=== PATIENT | male | born 1985 | race Caucasian/White ===

== ENCOUNTER 2022-08-19 14:47 | Outpatient (REF) | payer BC, SELFPAY ==
[2022-08-19 19:02] LABS: Alanine Aminotransferase 60 U/L (0-40); Albumin Level 4.2 g/dL (3.5-5.0); Alkaline Phosphatase 76 U/L (39-117); Aspartate Amino Transferase 40 U/L (5-37); Bilirubin Direct 0.2 mg/dL (0.0-0.5); Bilirubin Total 0.7 mg/dL (0.0-1.0); Ferritin 50 ng/mL (20-250); Total Protein 6.9 g/dL (6.5-8.0)
[2022-08-20 05:21] LABS: HBS Num1 > 1000.00 mIU/mL (0-7.99); HBc Num1 0.11 S/CO (0.00-0.79); HBsAGNum1 0.21 S/CO (0.00-0.99); Hepatitis B Core Antibody Nonreactive (Nonreactive); Hepatitis B Surface Antigen Negative (Negative); ~HepC Num1 0.12 S/CO (0.00-0.79); ~Hepatitis B Surface Antibody REACTIVE (Nonreactive); ~Hepatitis C Antibody Nonreactive (Nonreactive)
[2022-08-21 04:33] LABS: Hepatitis A Antibody IgM 0.21 Index (0-0.79); ~Hepatitis A Antibody IgM Nonreactive (Nonreactive)
== END 2022-08-19 14:48 | disposition home or self-care (01) ==
LOC: HO.MANLDS 14:47
PROVIDERS: Visit Provider Internal Medicine
DX: R74.01 Elevation of levels of liver transaminase levels (principal)
CPT/HCPCS: 36415; 80076; 82728; 86704; 86706; 86709; 86803; 87340

== ENCOUNTER 2023-05-07 10:36 | Outpatient (REF) | payer BC, SELFPAY ==
[2023-05-07 13:31] LABS: MANUAL DIFF FLAG NO
[2023-05-07 13:38] LABS: Basophils Percent Auto 0.6 % (0-2); Eosinophils Absolute Auto 0.1 X10*3/uL (0.0-0.4); Eosinophils Percent Auto 1.7 % (0-4); Hematocrit 42.3 % (42.0-52.0); Hemoglobin 14.1 g/dl (14.0-18.0); Imm Gran Abs Auto 0.02 X10*3/uL (0.00-0.03); Imm Gran Pct Auto 0.3 % (0.0-0.4); Lymphocytes Absolute Auto 1.7 X10*3/uL (1.2-4.9); Mean Corpuscular HGB Conc 33.3 g/dl (31.0-36.0); Mean Corpuscular Hemoglobin 27.4 pg (27.0-33.0); Mean Corpuscular Volume 82.3 fL (80.0-98.0); Mean Platelet Volume 8.8 fL (9.4-12.4); Monocytes Absolute Auto 0.7 X10*3/uL (0.1-1.2); Monocytes Percent Auto 10.2 % (2-11); Neutrophils Absolute Auto 4.3 x10*3/uL (2.0-8.3); Neutrophils Percent Auto 62.2 % (45-73); Platelet Count 318 X10*3/uL (160-400); Red Blood Count 5.14 X10*6/uL (4.60-5.80); Red Cell Distribution Width 12.8 % (11.0-16.0); White Blood Count 6.9 X10*3/uL (4.8-10.8)
[2023-05-07 14:04] LABS: Alanine Aminotransferase 19 U/L (0-40); Albumin Level 4.3 g/dL (3.5-5.0); Alkaline Phosphatase 85 U/L (39-117); Anion Gap 12 (12-20); Aspartate Amino Transferase 23 U/L (5-37); Bilirubin Total 0.6 mg/dL (0.0-1.0); Blood Urea Nitrogen 12 mg/dL (9-16); Carbon Dioxide 28 mmol/L (22-29); Chloride 101 mmol/L (96-108); Cholesterol 173 mg/dL (<200); Estimated Glomerular Filt Rate > 60; Glucose Random 87 mg/dL (60-115); HDL Cholesterol 61 mg/dL (>40); LDL Cholesterol Calculated 97 mg/dL (<100); Potassium 3.8 mmol/L (3.3-5.1); Sodium 137 mmol/L (135-145); Total Protein 7.8 g/dL (6.5-8.0); Triglycerides 79 mg/dL (<150)
[2023-05-07 14:24] LABS: Vitamin D 25-OH Total 37.4 ng/mL (>30)
== END 2023-05-07 10:37 | disposition home or self-care (01) ==
LOC: HO.HMGCLDS 10:36
PROVIDERS: PCP Internal Medicine; Visit Provider Internal Medicine
DX: Z00.00 Encounter for general adult medical examination without abnormal findings (principal); Z20.2 Contact with and (suspected) exposure to infections with a predominantly sexual mode of transmission
CPT/HCPCS: 36415; 80053; 80061; 82306; 85025

== ENCOUNTER 2024-09-27 12:55 | Outpatient (REF) | payer BC, SELFPAY ==
--- OUTSIDE RECORDS SUMMARY | 2024-09-27 15:09 | XMS_ITS | Data Portability ---
Author Organization [place] - [facility], Allergy Address [address] [address] Care Team Providers Care Patrol Lady Name Role Phone GHULAM MARY Primary Care Provider Assessment Encounter Date Assessment Date Assessment LastModified by Organization Details LastModified Time 02/27/2024 02/27/2024 39-year-old male with history of right Fasciaform tympanoplasty with split thickness skin grafting [address] Syed presents for follow up of myringitis. The infection has resolved. Right TM perforation is stable and dry. Continue with dry ear precautions on the right and plan for an ear cleaning in 2 months. [email or web address] Not available 02/27/2024 10:46:27 05/07/2024 05/07/2024 Physical exam demonstrates stability of the small perforation in the right tympanic membrane. Audiometric testing obtained today and reviewed with patient demonstrates normal hearing in the left ear and a slight conductive loss in the right ear, which we reviewed is due to the perforation. Patient has elected against further attempt at repair. He will follow-up in 1 year for repeat audiometric testing and will call sooner with any concerns that arise. He understands the importance of keeping the ear dry for bathing and swimming. [email or web address] Not available 05/07/2024 13:00:53 Plan of Treatment Reminders Order Date Submit Date Provider Last Modified By Organization Details Last Modified Time Details Appointments None record ed. Lab None record ed. Referral None record ed. Procedures None record ed. Surgeries None record ed. Imaging None record ed. Medication Orders None record ed. Patient TargetsNo targets recorded. Patient InstructionsNo instructions recorded. Reason for Referral None Reported. Results Created Date Observation Date Name Description Value Unit Range Abnormal Flag Note LastModifiedBy Organization Detail LastModifiedTime 05/06/20 24 02/07/2023 imagi ng/di agnos tic resul t No observ ation record ed. [email or web address] Not Available 19:25:37 05/06/20 24 02/07/2023 audio gram No observ ation record ed. [email or web address] Not Available 19:26:00 05/10/20 audio gram No observ ation record ed. [email or web address] Not Available 10:57:52 Result Notes None recorded. Problems Name Problem SNOMED Code Status Onset Date Resolution Date Notes Provider Name and Address Organization Details Recorded Time Conducti ve hearing loss 84024299 Active 2022 Conducti ve hearing loss, unilater al, right ear, with unrestri cted hearing on the contrala teral side; Note: Date Diagnose d: 3:32 PM (H90.11) Not Available [facility] 4 02:50:14 Otorrhea of right ear 31884331474 10375 Completed 202201/27/2024 Otorrhea , right ear; Note: Date Diagnose d: 01/15/2023 11:06 AM (H92.11) Note: Date Diagnose d: 01/15/2023 11:06 AM (H92.11) ANA ZHU PA-C [address] [place] [address], [place], [phone] , [facility] 4 10:14:39 Chronic right myringit is 96666425532 22452 Completed 202201/27/2024 Chronic myringit is, right ear; Note: Date Diagnose d: 3 4:55 PM (H73.11) Note: Date Diagnose d: 4:55 PM (H73.11) ANA ZHU PA-C [address] [place] [address],[place] [address], [place], [phone] , [facility] 4 10:14:53 Marginal perforat ion of tympanic membrane 85949027 Active 2022 Other marginal perforat ions of tympanic membrane , right ear; Note: Date Diagnose d: 3 3:10 PM (H72.2X1 ) Note: Date Diagnose d: 3 3:10 PM (H72.2X1 ) Not Available [facility] 4 01:10:20 Otorrhea of right ear 50169686170 74950 Active 2023 Otorrhea , right ear; Note: Date Diagnose d: 01/15/2023 11:06 AM (H92.11) Note: Date Diagnose d: 01/15/2023 11:06 AM (H92.11) ANA ZHU PA-C [address] [place] [address],[place] [address], [place], [phone] , [facility] - [facility] 4 10:14:39 Chronic right myringit is 39829179690 66506 Active 2023 Chronic myringit is, right ear; Note: Date Diagnose d: 3 4:55 PM (H73.11) Note: Date Diagnose d: 3 4:55 PM (H73.11) NAA ZHU PA-C [address] [place] [address],[place] [address], [place], [phone] , [facility] - [facility] 4 10:14:53 Problem Notes None recorded. Procedures Surgical History Date Name Laterality Status Provider Name and Address Organization Details Recorded Time 05/07/2024 Comp Audio with Tymps (84124 & 37879) completed Eileen White [place] - [facility] 05/07/2024 10:49:52 Imaging Results Imaging Date Name Status LastModified by Organiz ation Details LastModified Time 02/07/2023 imaging/diagno stic result completed [email or web address] Information not available 05/06/2024 19:25:37 02/07/2023 audiogram completed [email or web address] Information not available 05/06/2024 19:26:00 05/10/2024 audiogram completed alma Information not available 05/10/2024 10:57:52 Procedure Notes None recorded. Medical Equipment None Reported. Allergies No known drug allergies Medications Name Sig Start Date Stop Date Status Note LastModified by Organization Details LastModified Time cephalexin 500 mg capsule TAKE ONE CAPSULE BY MOUTH TWICE A DAY TO START THE MORNING OF PROCEDURE active Not Available Not Available No t Available tobramycin 0.3 %-dexameth asone 0.1 % eye drops,susp ension INSTILL 4 DROP IN THE AFFECTED EAR TWICE A DAY FOR 21 DAYS active Not Available Not Available No t Available Ciprodex 0.3 %-0.1 % ear drops,susp ension Apply 4 drop twice a day 2022 active Medicatio n ID: [id number] Du ration Value: 14 Brand Name: Ciprodex Send Method: E-Prescri bed Subs Allowed: subs OK Specia l Instructi on: x 14 days Medi cationGen ericName: Ciprodex Not Available Not Available Not Available Vitals Date Recorded Body height Body mass index (BMI) Body weight Provider Name and Address Organization Details Last Updated DateTime 05/07/2024 177.8 cm 25.8 kg/m2 37102.63 g James Martinez [facility] 05/07/2024 10:06:03 Date Recorded Body height Body mass index (BMI) Body weight Provider Name and Address Organization Details Last Updated DateTime 02/27/2024 177.8 cm 25.8 kg/m2 87149.63 g Haylee Kasper [facility] 02/27/2024 10:36:05 Social History None recorded. Functional Status None recorded. Mental Status None recorded. Family History Nothing Reported. Medical History No medical history recorded. Past Encounters Encounter ID Performer Location Encounter Start Date Encounter Closed Date Diagnosis/Indication Diagnosis SNOMED-CT Code Diagnosis ICD10 Code Diagnosis Note [id number] KVNG DUPONT MD [facility] [address] [place] [address] 02/27/2024 10:09:02 02/27/2024 10:44:32 Otorrhea of right ear [id number] 132564 H92.11 Marginal p erforation of tympanic membrane 39542629 H72.2X9 Chronic ri ght myringitis 4424387778 691642 H73.11 [id number] SONNY ORTEGA MD [facility] [address] [place] [address] 05/07/2024 10:00:54 05/07/2024 11:17:11 Marginal perforation of tympanic membrane 03591222 H72.2X9 Conductive hearing loss 33943645 H90.11 Audiologic al evaluation results: Right ear: {{Normal* Normal through 2 kHz Mild M oderate Mo derately-s evere Mami re Profoun d}} {{hearing sloping to a mild* slop ing to a moderate s loping to moderately severe slo ping to severe slo ping to profound f lat high frequency low frequency mid frequency cookie bite polanco curve}} {{with sen sorineural hearing loss with condu ctive hearing loss with* mixe d hearing loss with}} {{excellen t* good fa ir poor no measurable }} word recognitio n. Left ear: {{Normal* Normal through 2 kHz Mild M oderate Mo derately-s evere Mami re Profoun d}} {{hearing* sloping to a mild slopi ng to a moderate s loping to moderately severe slo ping to severe slo ping to profound f lat high frequency low frequency mid frequency cookie bite polanco curve}} {{with* se nsorineura l hearing loss with condu ctive hearing loss with mixed hearing loss with}} {{excellen t* good fa ir poor no measurable }} word recognitio n. Tympanomet ry: Right Ear:{{Type A Type As Type Ad Type C Type C, shallow & rounded Ty pe B Type B with large volume* Co uld not maintain a hermetic seal}} Left Ear:{{Type A Type As Type Ad* Type C Type C, shallow & rounded Ty pe B Type B with large volume Cou ld not maintain a hermetic seal}} Health Concerns Section Related Observation LastModified by Organization Detai ls LastModified Time None Recorded Concern Status LastModified by Organization Details LastModified Time None Recorded Advance Directives Directive None Recorded Payers Encounter Date Sequence Insurance Name Policy Number Policy Garrett Covered Member ID Garrett Member ID Guarantor Name 02/27/2024 1 [employer]: [employer] [id number] Andriy [id number] Andriy Goldberg 05/07/2024 1 [employer]: [employer] [id number] Andriy Goldberg [id number] Andriy oGldberg Notes Date Note Type Note Provider Name and Address Organization Details Recorded Time 02/27/2024 text/html 39-year-old male with history of right Fasciaform tympanoplasty with split thickness skin grafting [address] Syed presents for follow up of myringitis. Otomax ointment was applied at the previous visit. Otorrhea has resolved. Denies otalgia and changes in his hearing. KVNG BURRELL MD [address] [place] [address], [phone], [facility] 02/27/2024 11:58:03 05/07/2024 text/html 39-year-old male with history of right TM perforation and history of fascia graft tympanoplasty presents for evaluation of the ears and hearing. He denies otorrhea, otalgia, and change in hearing. He does keep the right ear dry. SONNY ORTEGA MD [address] [place] [address],[place] [address], [place], [phone], [facility] 05/08/2024 04:17:53
[2024-09-27 16:06] LABS: MANUAL DIFF FLAG NO
[2024-09-27 16:20] LABS: Basophils Percent Auto 0.5 % (0-2); Eosinophils Absolute Auto 0.1 X10*3/uL (0.0-0.4); Hematocrit 40.6 % (42.0-52.0); Hemoglobin 13.7 g/dl (14.0-18.0); Imm Gran Abs Auto 0.04 X10*3/uL (0.00-0.03); Imm Gran Pct Auto 0.5 % (0.0-0.4); Lymphocytes Absolute Auto 2.3 X10*3/uL (1.2-4.9); Lymphocytes Percent Auto 30.3 % (20-40); Mean Corpuscular HGB Conc 33.7 g/dl (31.0-36.0); Mean Corpuscular Hemoglobin 27.3 pg (27.0-33.0); Monocytes Absolute Auto 0.7 X10*3/uL (0.1-1.2); Monocytes Percent Auto 8.5 % (2-11); Neutrophils Absolute Auto 4.5 x10*3/uL (2.0-8.3); Neutrophils Percent Auto 59.2 % (45-73); Platelet Count 295 X10*3/uL (160-400); Red Blood Count 5.01 X10*6/uL (4.60-5.80); Red Cell Distribution Width 12.7 % (11.0-16.0); White Blood Count 7.7 X10*3/uL (4.8-10.8)
[2024-09-27 19:27] LABS: Alanine Aminotransferase 49 U/L (0-40); Albumin Level 4.3 g/dL (3.5-5.0); Anion Gap 14 (12-20); Aspartate Amino Transferase 40 U/L (5-37); Bilirubin Total 0.8 mg/dL (0.0-1.0); Blood Urea Nitrogen 14 mg/dL (9-16); Calcium 9.5 mg/dL (8.4-10.2); Carbon Dioxide 25 mmol/L (22-29); Chloride 104 mmol/L (96-108); Estimated Glomerular Filt Rate > 60; Gamma Glutamyl Transpeptidase 80 U/L (11-51); Glucose Random 74 mg/dL (60-115); Iron 86 mcg/dL (45-160); Lipase 14 U/L (8-78); Percent Iron Saturation 29 % (15-50); Sodium 139 mmol/L (135-145); Total Iron Binding Capacity 292 mcg/dL (228-428); Total Protein 7.8 g/dL (6.5-8.0); Unsaturated Iron Binding 206 ug/dL
[2024-09-27 20:01] LABS: Ferritin 66 ng/mL (20-250)
[2024-09-27 20:19] LABS: Alkaline Phosphatase 85 U/L (39-117); Amylase 50 U/L (28-100)
== END 2024-09-27 12:56 | disposition home or self-care (01) ==
LOC: HO.HMGCLDS 12:55
PROVIDERS: PCP Internal Medicine; Visit Provider Physician Assistant
DX: K92.1 Melena (principal); K59.09 Other constipation
CPT/HCPCS: 36415; 80053; 82150; 82728; 82977; 83540; 83690; 85025

== ENCOUNTER 2024-10-01 13:55 | Outpatient (REF) | payer BC, SELFPAY ==
[2024-10-08 03:33] LABS: Calprotectin, Fecal 1420 mcg/g
== END 2024-10-01 13:56 | disposition home or self-care (01) ==
LOC: HO.HMGCLNP 13:55
PROVIDERS: PCP Internal Medicine; Visit Provider Physician Assistant
DX: K92.1 Melena (principal); K59.09 Other constipation
CPT/HCPCS: 83993